=== PATIENT | male | born 1985 | race Two or more races ===

== ENCOUNTER → 2020-06-13 | Emergency (ER) | payer OTHER ==
[~2020-06-13] VITALS: Ht 165.1 cm; Wt 65.3 kg
[~2020-06-13] MED LIST: CLONAZEPAM0.125 MG PO
== END | disposition left against medical advice (07) ==
LOC: ER 13:40
DX: Z53.20 Procedure and treatment not carried out because of patient's decision for unspecified reasons (principal)

== ENCOUNTER 2020-09-04 21:11 | Emergency (ER) | payer OTHER ==
[~2020-09-04] VITALS: Ht 175.3 cm; Wt 65.8 kg
[2020-09-04] MEDS ORDERED: TIZANIDINE HCL4 MG PO (21:18)
[2020-09-05] MEDS ORDERED: ACETAMINOPHEN650 M2 PO (01:19)
== END 2020-09-05 01:36 | disposition home or self-care (01) ==
LOC: ER 21:11
DX: B34.9 Viral infection, unspecified (principal); Z11.52 Encounter for screening for COVID-19

== ENCOUNTER 2021-03-29 15:05 | Emergency (ER) | payer OTHER ==
[~2021-03-29] VITALS: Ht 175.3 cm; Wt 65.3 kg
[~2021-03-29 15:05] MED LIST changes: +ACETAMINOPHEN650 M2 PO; +TIZANIDINE HCL4 MG PO
== END 2021-03-29 20:26 | disposition home or self-care (01) ==
LOC: ER 15:05
DX: R10.84 Generalized abdominal pain (principal); R07.89 Other chest pain; B20 Human immunodeficiency virus [HIV] disease; F19.10 Other psychoactive substance abuse, uncomplicated; Z20.822 Contact with and (suspected) exposure to COVID-19

== ENCOUNTER 2022-01-29 21:06 | Emergency (ER) | payer OTHER ==
[~2022-01-29] VITALS: Ht 175.3 cm; Wt 65.8 kg
[2022-01-29] MEDS ORDERED: GENVOYA TABLET1 EACH PO (21:31)
== END 2022-01-29 22:02 | disposition home or self-care (01) ==
LOC: ER 21:06
DX: G50.0 Trigeminal neuralgia (principal); Z88.8 Allergy status to other drugs, medicaments and biological substances

== ENCOUNTER 2022-06-13 01:44 | Emergency (ER) | payer OTHER ==
[~2022-06-13] VITALS: Ht 175.3 cm; Wt 65.8 kg
[~2022-06-13 01:44] MED LIST changes: +GENVOYA TABLET1 EACH PO
[2022-06-13] MEDS ORDERED: KETO10TA2 PO (04:41)
== END 2022-06-13 04:57 | disposition home or self-care (01) ==
LOC: ER 01:44
DX: S60.222A Contusion of left hand, initial encounter (principal); S50.12XA Contusion of left forearm, initial encounter; Y08.89XA Assault by other specified means, initial encounter; Y93.89 Activity, other specified; Y92.89 Other specified places as the place of occurrence of the external cause; Y99.9 Unspecified external cause status; Z88.8 Allergy status to other drugs, medicaments and biological substances